=== PATIENT | female | born 1990 | race Caucasian/White ===

== ENCOUNTER 2022-05-11 16:59 | Emergency (ER) | payer BC, SELFPAY ==
[2022-05-11 17:16] VITALS: BP 140/78; PULSE 106; RESP 20; TEMP 37.4; O2SAT 100
--- NOTE | 2022-05-11 18:31 | ED.GENADULT ---
HPI - General Adult General Chief complaint: Upper Respiratory Infection Stated complaint: Cold Symptoms, Vomiting, 10 Weeks Preg Time Seen by Provider: 05/11/22 18:21 Source: patient Mode of arrival: ambulatory Limitations: no limitations History of Present Illness HPI narrative: Presents c/o nasal congestion, sore throat, cough that started Sunday. Now has N/V that started this AM and has not been able to keep anything down. 10 weeks preg but denies ABD pain or vaginal sx. LMP 02/20/22. Denies change in urination. Mild pain to low back. Has not taken any medications for sx. Reports baby ill last week with similar upper resp sx. Related Data Allergies Allergy/AdvReac Type Severity Reaction Status Date / Time No Known Allergies Allergy Mild Verified 12/16/21 09:47 Review of Systems Review of Systems: CONSTITUTIONAL: Denies fever, chills, or sweats. EYES: Denies visual changes, redness, or discharge. ENT: Nasal congestion, sore throat, congestion. CARDIOVASCULAR: Denies chest pain, palpitations, or edema. RESPIRATORY: Nonprod cough. Denies diff breathing. GASTROINTESTINAL: N/V since this AM. Denies ABD pain. GENITOURINARY: Denies dysuria or hematuria. SKIN: Denies rash or itching. MUSCULOSKELETAL: Low back pain. Denies joint pain, or myalgia. NEUROLOGIC: Denies headache, numbness, or weakness. PSYCHIATRIC: Denies anxiety or depression. [facility] Family History Family History Grandparent Diabetes mellitus Heart disease Social History Social History (Updated 12/16/21 @ 09:53 by Conrad Calzada MA) Smoking status: Former smoker Second hand tobacco smoke exposure: No Smoking end date: 07/09/19 Alcohol intake: never Substance use: never Substance use type: does not use Gender identity (if verbalized by the patient): Female Sexual Orientation (if Verbalized by the Patient): Straight or Heterosexual Spiritual care concerns: No Agree to blood products: Yes Exam Narrative: GENERAL: Well-appearing, well-nourished, and in no acute distress. HEAD: Normocephalic, atraumatic. EYES: PERRLA and EOMI. ENT: Nasal congestion with clear drainage. Posterior oropharynx drainage with slight erythema. No exudate. Mucous membranes moist. NECK: Supple. CHEST: Clear to auscultation. No respiratory distress. HEART: Regular rate and rhythm. No murmur heard. Normal peripheral pulses. ABDOMEN: Soft, nontender, nondistended, normal active bowel sounds. EXTREMITIES: Normal range of motion. No edema. SKIN: Warm, dry, no rash. NEURO: No focal deficits. Alert and oriented x3. PSYCH: Normal mood and affect. Course Vital Signs Vital signs: Vital Signs Temperature 37.4 C 05/11/22 17:16 Pulse Rate 106 H 05/11/22 17:16 Respiratory Rate 20 05/11/22 17:16 Blood Pressure 140/78 05/11/22 17:16 Pulse Oximetry 100 05/11/22 17:16 Oxygen Delivery Room Air 05/11/22 17:16 Temperature 37.4 C 05/11/22 17:16 Pulse Rate 106 H 05/11/22 17:16 Respiratory Rate 20 05/11/22 17:16 Blood Pressure 140/78 05/11/22 17:16 Pulse Oximetry 100 05/11/22 17:16 Oxygen Delivery Room Air 05/11/22 18:14 Medical Decision Making Vital Signs Vital Signs: Vital Signs Temperature 37.4 C 05/11/22 17:16 Pulse Rate 106 H 05/11/22 17:16 Respiratory Rate 05/11/22 17:16 Blood Pressure 140/78 05/11/22 17:16 Pulse Oximetry 100 05/11/22 17:16 Oxygen Delivery Room Air 05/11/22 17:16 Temperature 37.4 C 05/11/22 17:16 Pulse Rate 106 H 05/11/22 17:16 Respiratory Rate 05/11/22 17:16 Blood Pressure 140/78 05/11/22 17:16 Pulse Oximetry 100 05/11/22 17:16 Oxygen Delivery Room Air 05/11/22 18:14 Discharge Plan Discharge Prescriptions: No Action amoxicillin-pot clavulanate 875-125 mg tablet 1 tablet PO BID Qty: 14 0RF sulfamethoxazole-trimethoprim [Bactrim DS] 800-160 mg tablet 1 tab
[2022-05-11] MEDS: SODIUM CHLORIDE 0.9% IV 1,000 ML 999 ML IV CONT (19:01)
[2022-05-11] MEDS: ONDANSETRON INJ 4 MG/2 ML VIAL IV PUSH (19:01)
[2022-05-11 19:25] LABS: Basophils Percent Auto 0.2 % (0.2-1.2); Eosinophils Absolute Auto 0.1 K/mm3 (0-0.3); Hematocrit 36.2 % (37.0-47.0); Immature Granulocyte Absolute 0.04 K/mm3 (0.00-0.031); Immature Granulocyte Percent A 0.4 % (0-0.5); Lymphocytes Absolute Auto 1.01 K/mm3 (0.9-3.2); Lymphocytes Percent Auto 11.2 % (18.3-44.2); Mean Corpuscular HGB Conc 33.1 g/dl (32-36); Mean Corpuscular Hemoglobin 28.8 pg (26-34); Mean Corpuscular Volume 86.8 fl (80-100); Mean Platelet Volume 11.6 fl (7.4-10.4); Monocytes Absolute Auto 0.8 K/mm3 (0.1-0.6); Neutrophils Absolute Auto 7.1 K/mm3 (1.3-6.7); Neutrophils Percent Auto 78.2 % (45.5-73.1); Platelet Count Result 213 k/mm3 (150-375); Red Blood Count 4.17 M/mm3 (4.2-5.4); Red Cell Distribution Width 12.5 % (11.5-14.5)
[2022-05-11 19:31] LABS: Appearance Urine Clear (Clear); Bilirubin Urine Negative (Negative); Blood Urine Trace-intact (Negative); Color Urine Yellow (Yellow); Glucose Urine UA Negative (Negative); Ketones Urine 1+ mg/dL (Negative); Leukocyte Esterase Ur Trace LEU/UL (Negative); Nitrate Urine Negative (Negative); Protein Urine Negative (Negative); Urobilinogen Urine 0.2 mg/dL (<2.0); pH Urine 6.5 (5.0-9.0)
[2022-05-11 19:33] LABS: Alanine Aminotransferase 14 U/L (6-35); Albumin Level 4.1 g/dL (3.5-5.1); Alkaline Phosphatase 68 U/L (38-126); Anion Gap 14 mmol/L (8-16); Aspartate Amino Transferase 15 U/L (14-36); Bilirubin,Total 0.4 mg/dL (0.2-1.3); Blood Urea Nitrogen 6 mg/dL (7-17); Calcium 8.7 mg/dL (8.4-10.2); Carbon Dioxide 22 mmol/L (22-30); Chloride 100 mmol/L (98-107); Estimated CRCL calculation 198 ml/min; Estimated Glomerular Filt Rate > 60; Glucose 92 mg/dL (65-110); Lipase 28 U/L (23-300); Potassium 3.6 mmol/L (3.4-5.0); Sodium 136 mmol/L (137-145)
[2022-05-11 19:39] LABS: Bacteria Urine Trace /hpf; Mucus Urine Rare /lpf; Squamous Epithelial Cell Urine Few /hpf (Few); WBC Urine 0-3 /hpf
[2022-05-11 19:48] LABS: Add Urine Microscopic? YES
[2022-05-11 20:07] LABS: Influenza A QL RT-PCR Negative (Negative); Influenza B QL RT-PCR Negative (Negative); SARS-CoV-2 RNA PCR Negative
[2022-05-11 20:12] VITALS: BP 106/57; PULSE 88; RESP 16; TEMP 36.9; O2SAT 100
== END 2022-05-11 20:35 | disposition home or self-care (01) ==
PROVIDERS: Emergency Provider Nurse Practitioner; PCP Family Medicine Adolescent Medicine
DX: O99.511 Diseases of the respiratory system complicating pregnancy, first trimester (principal); J06.9 Acute upper respiratory infection, unspecified; O21.9 Vomiting of pregnancy, unspecified; Z3A.10 10 weeks gestation of pregnancy; Z20.822 Contact with and (suspected) exposure to COVID-19; Z87.891 Personal history of nicotine dependence
CPT/HCPCS: 36415; 80053; 81001; 83690; 85025; 87636; 96361; 96374; 99284; J2405; J7030

== ENCOUNTER 2022-10-19 13:04 | Observation (INO) | payer BC, SELFPAY ==
[2022-10-19 13:33] VITALS: BP 131/82; PULSE 100
[2022-10-19 13:41] VITALS: BMI 41.9
--- NOTE | 2022-10-19 13:42 | OBADM ---
This patient, Julianne Quiles, admitted to the OB room OB Post 117 for observation. Patient/family oriented to hospital policies and general routines including ID bracelet, bed and alarms, visiting hours, pain management, procedures, bathroom and other care routines, personal items, smoking policy, room service/diet, and visiting hours. Patient/Family are encouraged to report perceived risks to care and to ask questions if they do not understand what they are told or what they should do.
[2022-10-19 13:46] VITALS: BP 118/70; PULSE 101
[2022-10-19 13:54] LABS: Appearance Urine Clear (Clear); Bilirubin Urine Negative (Negative); Blood Urine Negative (Negative); Color Urine Yellow (Yellow); Glucose Urine UA Negative (Negative); Ketones Urine Negative (Negative); Leukocyte Esterase Ur Negative LEU/UL (Negative); Nitrate Urine Negative (Negative); Protein Urine Negative (Negative); Specific Grav Ur 1.002 (1.001-1.035); Urobilinogen Urine 0.2 mg/dL (<2.0)
[2022-10-19 14:01] VITALS: BP 120/68; PULSE 98
[2022-10-19 14:04] LABS: Add Urine Microscopic? NO
[2022-10-19 14:16] VITALS: BP 125/68; PULSE 95
--- NOTE | 2022-11-12 17:52 | PM.OBTRLD ---
OB - Triage/Final Diagnosis Visit Information Comments/Additional reasons for admission: I have assessed the risk for this patient, Julianne Quiles, and determined that she would benefit from observation care. Evaluation Laboratory results: Laboratory Tests 10/19/22 13:25 Urine Color Yellow Urine Appearance Clear Urine pH 7.0 Ur Specific [place] 1.002 Urine Protein Negative Urine Glucose (UA) Negative Urine Ketones Negative Ur Blood (Man) Negative Urine Nitrate Negative Urine Bilirubin Negative Urine Urobilinogen 0.2 Leukocyte Esterase Rfl Negative Final Diagnosis (1) Abdominal pain: Code(s): R10.9 - Unspecified abdominal pain Status: Acute
== END 2022-10-19 14:32 | disposition home or self-care (01) ==
PROVIDERS: Obstetrics & Gynecology; Admitting Provider Obstetrics & Gynecology; PCP Family Medicine Adolescent Medicine; Visit Provider Obstetrics & Gynecology
DX: O26.899 Other specified pregnancy related conditions, unspecified trimester (principal); R10.9 Unspecified abdominal pain; Z3A.33 33 weeks gestation of pregnancy
CPT/HCPCS: 81003; G0378; G0379

== ENCOUNTER 2022-11-28 10:52 | Outpatient (CLI) | payer BC, SELFPAY ==
[2022-11-28 11:08] LABS: Hematocrit 33.4 % (37.0-47.0); Hemoglobin 11.2 g/dL (12.0-15.0); Mean Corpuscular HGB Conc 33.5 g/dl (32-36); Mean Corpuscular Volume 83.5 fl (80-100); Mean Platelet Volume 11.8 fl (7.4-10.4); Platelet Count Result 211 k/mm3 (150-375); Red Cell Distribution Width 13.4 % (11.5-14.5); White Blood Count 10.6 K/mm3 (4.5-10.0)
[2022-11-29 08:05] LABS: Rapid Plasma Reagin Non-Reactive (NonReactive)
== END 2022-11-28 10:53 | disposition home or self-care (01) ==
LOC: ANHLAB 10:53
PROVIDERS: PCP Family Medicine Adolescent Medicine; Visit Provider Obstetrics & Gynecology
DX: Z34.93 Encounter for supervision of normal pregnancy, unspecified, third trimester (principal); Z3A.00 Weeks of gestation of pregnancy not specified
CPT/HCPCS: 36415; 85027; 86592; 86850; 86900; 86901

== ENCOUNTER 2022-11-29 09:59 | Inpatient (IN) | payer BC, SELFPAY ==
[2022-11-29] VITALS (57 sets, daily range): BP systolic 92–123; BP diastolic 43–81; PULSE 53–107; RESP 11–18; TEMP 36.2–36.8; O2SAT 96–100; BMI 41.3
--- NOTE | 2022-11-29 10:16 | WPDANESEPPF ---
Anes - Initial Pre Proc Eval Procedure: Operation Date: 11/29/22 12:00 Proposed Procedures p Section - Rosalinda Arauz MD Date/Time: 11/29/22 10:16 Surgeon: Elli Elder MD Pre Op Diagnosis: r c/s Patient Data Age: 32 Gender: F Height: 1.75 m Weight: 127.1 kg Allergies Allergy/AdvReac Type Severity Reaction Status Date / Time adhesive Allergy Rash Verified 11/29/22 10:13 Home Medications Medication Instructions Recorded Confirmed Type montelukast 10 mg tablet 10 mg PO DAILY #90 tabs 04/05/22 11/29/22 Rx loratadine 10 mg tablet (Allergy 10 mg PO DAILY #90 tabs 07/31/22 11/29/22 Rx Relief (loratadine)) aspirin 81 mg tablet 81 mg PO DAILY 11/09/22 11/29/22 History ferrous sulfate 325 mg (65 mg 325 mg PO DAILY 11/09/22 11/29/22 History iron) tablet prenat.vits,tawana,vem-irmo-gngmc 1 tablet PO HS 11/09/22 11/29/22 History Patient hx anesthesia problems: none Family hx anesthesia problems: none Results Review: All pre-operative results and documents have been reviewed as part of the pre-operative evaluation. [facility] Past Medical History Medical History (Updated 11/29/22 @ 11:53 by Nico Casanova DO) Pre-eclampsia first Family History Family History (Updated 11/29/22 @ 10:57 by Dee Hicks RN) Grandparent Diabetes mellitus Heart disease Mother Rheumatoid arthritis Social History Social History (Updated 12/16/21 @ 09:53 by Conrad Calzada MA) Smoking packs per day: 0.5 Smoking cigarettes per day: 10.0 Years smoked: 5 Smoking pack-years: 2.50 Smoking status: Former smoker Tobacco type: cigarettes Second hand tobacco smoke exposure: No Smoking end date: 07/09/19 Alcohol intake: never Substance use: never Substance use type: does not use Lack of Transportation: No Lack of Food: Never True Current Housing: I Have Housing Concerned About Future Housing: No Difficulty Paying Gas/Electric Bills: No Difficulty Paying for Meds: No Currently Unemployed: No Education: Master's Degree or Higher Difficulty w/ Childcare or Family Care: No Living arrangements: with family Occupation/Education: occupation Gender identity (if verbalized by the patient): Female Sexual Orientation (if Verbalized by the Patient): Straight or Heterosexual Spiritual care concerns: No Agree to blood products: Yes Anes - Eval Final PreProcedure Day of Procedure 11/29/22 10:16 Patient weight: morbidly obese Heart: regular rate and rhythm Lungs: clear to auscultation and normal air movement Airway: Mallampati scale class II Neurological: alert and oriented Last oral intake: >/= 8 hours ASA classification: III Emergent: no Anesthetic plan: proceed Anesthesia type and monitoring: regional spinal and standard monitoring Results Review: All pre-operative results and documents have been reviewed as part of the pre-operative evaluation. Informed Consent: The patient's anesthetic plan and its attendant risks and benefits were discussed with the patient/family/POA. Questions were solicited and answers provided to the satisfaction of the patient/family/POA.
[2022-11-29] MEDS: LACTATED RINGERS 1,000 ML 125 ML IV CONT ×2 (10:43→11:57)
--- NOTE | 2022-11-29 10:51 | LDADM ---
This patient, Julianne Quiles, was admitted to Labor/Delivery/Recovery 120 on 11/29/22 at 09:59. Plans for surgery/ and pain management were discussed with patient. Patient/family oriented to hospital policies and general routines including ID bracelet, bed and alarms, visiting hours, pain management, procedures, bathroom and other care routines, personal items, smoking policy, room service/diet and guest tray routines, infant security routines, and visiting hours. Patient/Family are encouraged to report perceived risks to care and to ask questions if they do not understand what they are told or what they should do.
--- NOTE | 2022-11-29 11:47 | PM.IMHP ---
H&P: HPI History of Present Illness Date/Time: 11/29/22 11:47 Chief Complaint: repeat CS Narrative: Julianne is a 32y [id number] at 39.0 for repeat CS. complicated by BMI of 42. Baby was measuring LGA earlier in , but 36w US was 80%. She has an adhesive sensitivity, but only if left on for long periods of time. Review of Systems Review of Systems: All systems reviewed & are unremarkable except as noted in HPI and below PMFSH Past Medical History Medical History (Updated 11/29/22 @ 10:17 by Nico Casanova DO) Pre-eclampsia Family History Family History (Updated 11/29/22 @ 10:57 by Dee Hicks RN) Grandparent Diabetes mellitus Heart disease Mother Rheumatoid arthritis Social History Social History (Updated 12/16/21 @ 09:53 by Conrad Calzada MA) Smoking packs per day: 0.5 Smoking cigarettes per day: 10.0 Years smoked: 5 Smoking pack-years: 2.50 Smoking status: Former smoker Tobacco type: cigarettes Second hand tobacco smoke exposure: No Smoking end date: 07/09/19 Alcohol intake: never Substance use: never Substance use type: does not use Lack of Transportation: No Lack of Food: Never True Current Housing: I Have Housing Concerned About Future Housing: No Difficulty Paying Gas/Electric Bills: No Difficulty Paying for Meds: No Currently Unemployed: No Education: Master's Degree or Higher Difficulty w/ Childcare or Family Care: No Living arrangements: with family Occupation/Education: occupation Gender identity (if verbalized by the patient): Female Sexual Orientation (if Verbalized by the Patient): Straight or Heterosexual Spiritual care concerns: No Agree to blood products: Yes Meds Home Medications and Allergies Home Medications Medication Instructions Recorded Confirmed Type montelukast 10 mg tablet 10 mg PO DAILY #90 tabs 04/05/22 11/29/22 Rx loratadine 10 mg tablet (Allergy 10 mg PO DAILY #90 tabs 07/31/22 11/29/22 Rx Relief (loratadine)) aspirin 81 mg tablet 81 mg PO DAILY 11/09/22 11/29/22 History ferrous sulfate 325 mg (65 mg 325 mg PO DAILY 11/09/22 11/29/22 History iron) tablet prenat.vits,tawana,ans-cnts-rievq 1 tablet PO HS 11/09/22 11/29/22 History Allergies Allergy/AdvReac Type Severity Reaction Status Date / Time adhesive Allergy Rash Verified 11/29/22 10:13 Vital Signs Vital Signs - 24 hr 11/29/22 10:25 11/29/22 10:30 11/29/22 10:32 Temperature Pulse Rate Respiratory Rate Blood Pressure Pulse Oximetry 99 100 99 Oxygen Delivery 11/29/22 10:37 11/29/22 10:42 11/29/22 10:46 Temperature Pulse Rate Respiratory Rate Blood Pressure Pulse Oximetry 98 98 98 Oxygen Delivery 11/29/22 10:47 11/29/22 10:51 11/29/22 10:47 Temperature Pulse Rate 106 H Respiratory Rate Blood Pressure 123/81 Pulse Oximetry 99 Oxygen Delivery Room Air 11/29/22 10:47 Temperature 97.3 F L Pulse Rate Respiratory Rate 16 Blood Pressure Pulse Oximetry Oxygen Delivery Exam Const: General: no acute distress Resp: Effort & Inspection: normal respiratory effort Auscultation: clear to auscultation bilaterally Cardio: Rate: regular rate Rhythm: regular rhythm GI: GI Palp: Yes Soft to palpation Extrem: General: normal to inspection Assessment and Plan Assessment and plan (1) History of delivery: Code(s): Z98.891 - History of uterine scar from previous surgery Status: Acute (2) Morbid obesity with BMI of 40.0-44.9, adult: Code(s): E66.01 - Morbid (severe) obesity due to excess calories; Z68.41 - Body mass index [BMI] 40.0-44.9, adult Status: Acute Plan FHT category 1 GBS neg BMI 42, pt aware of increased risks of surgery consented for repeat CS, will proceed. limit adhesive/bandages, remove when able.
--- NOTE | 2022-11-29 11:50 | WPDHPUPDATE1 ---
History and Physical Update Update Date/Time: 11/29/22 11:50 History and Physical has been reviewed, including an updated exam of the patient. There are NO changes in the patient's condition. Risks, benefits, and alternatives have been discussed and questions answered. Patient agrees to proceed with procedure.
[2022-11-29] MEDS: ceFAZolin 3 GM/D5W 100 ML 100 ML IVPB (11:57)
[2022-11-29] MEDS: KETOROLAC 30 MG/ML VIAL (*BKC) IV PUSH (12:44)
--- NOTE | 2022-11-29 13:09 | PM.OBPRVD ---
OB - Delivery Note Procedure Delivery date: 11/29/22 Procedure: Procedures Operation Date: 11/29/22 12:00 <No data on this case meets the specified criteria> repeat low transverse section Events: Previous Delivery Route of delivery: Specimen: Yes (placenta) Quantitative Blood Loss (ml): 950 Anesthesia type: Spinal Disposition: Floor Complications: none Narrative: Preop Dx: previous section, IUP 39w Post op Dx: same The patient was taken to the OR and received spinal anesthesia. She was placed in dorsal supine position with left lateral tilt. SCDs and lawrence were placed. She was prepped and draped in the normal sterile fashion. A Pfannensteil skin incision was made and carried through to the underlying layer of fascia. The fascia was incised in the midline and then extended laterally using Stern scissors. The muscles were in the midline and the peritoneum was entered bluntly. The peritoneal incision was extended inferiorly and superiorly with care to avoid the bladder. The bladder blade was then inserted, the vesicouterine peritoneum was grasped, incised with Metzenbaum scissors, and a bladder flap created. The bladder blade was reinserted. A low transverse uterine incision was made with a scalpel and extended bluntly. AROM was performed and fluid was noted to be clear. The head was delivered, followed by the remainder of the baby. The baby's oropharynx was suctioned. After 30 seconds, the cord was clamped and cut and the infant was handed off. Cord blood was obtained and the placenta was then removed manually. The uterus was exteriorized. A moist lap sponge was used to curette the endometrium. The uterine incision was then closed with one layer of 0-Vicryl in a running, locking fashion. Good hemostasis was noted. The posterior cul de sac was irrigated with normal saline and cleared of all clot and debris. The uterus was returned to the abdomen. Both lateral gutters were then irrigated. The rectus muscles were inspected and found to be hemostatic. The fascia was reapproximated using 0-Vicryl in running fashion. The subcutaneous tissue was irrigated with normal saline and made hemostatic with Bovie electrocautery. The subcutaneous tissue was reapproximated with a layer of running 2-0 plain gut. The skin was then closed with absorbable luz. Steri strips and a bandage were applied. The uterus was evacuated. The patient tolerated the procedure very well. All counts were correct. She was taken to the recovery room in good condition. Baby Date of : 11/29/22 Time of : 12:28 Weeks of gestation at delivery: 39 gender: Female Weight (pounds): 7 Weight (ounces): 15 presentation: vertex Placenta delivery description: Spontaneous Cord Vessel Description: 3 Vessels and Delayed Cord Clamping score one minute: 9 score five minutes: 9
[2022-11-29] MEDS: OXYTOCIN 30 UNITS/NS 500 ML 30 UNITS/500 ML BAG 125 UNITS IV CONT (13:44)
--- NOTE | 2022-11-29 13:56 | PC.NURSE ---
heart tones checked in OR before prep. At 1206 FHT 135.
--- NOTE | 2022-11-29 15:24 | OBPPTRN ---
Patient transferred to post room #285 via stretcher. Pt transfered to bed using the maxi air, pt tolerated well. Support person present. Oriented to unit, room, information board, rooming in, admission packet and security measures. Patient verbalizes understanding.
[2022-11-29] MEDS: DEXTROSE 5%/0.45% SOD CHL 1,000 ML 125 ML IV CONT (17:43)
[2022-11-29] MEDS: DOCUSATE SODIUM 100 MG CAPSULE PO (20:57)
[2022-11-29] MEDS: IBUPROFEN 600 MG TABLET PO (20:57)
[2022-11-29] MEDS: HYDROcodone/acetaminophen (*CRX) 5-325 MG TABLET 1 TAB PO (21:02)
[2022-11-30 00:38] VITALS: BP 115/68; PULSE 74; RESP 14; TEMP 36.6; O2SAT 99
[2022-11-30] MEDS: HYDROcodone/acetaminophen (*CRX) 5-325 MG TABLET 1 TAB PO ×5 (01:46→17:40)
[2022-11-30 05:00] VITALS: BP 121/71; PULSE 77; RESP 16; TEMP 36.5; O2SAT 99
[2022-11-30 05:37] LABS: Basophils Percent Auto 0.2 % (0.2-1.2); Eosinophils Absolute Auto 0.1 K/mm3 (0-0.3); Eosinophils Percent Auto 0.6 % (0-4.4); Hematocrit 28.4 % (37.0-47.0); Hemoglobin 9.4 g/dL (12.0-15.0); Immature Granulocyte Absolute 0.05 K/mm3 (0.00-0.031); Immature Granulocyte Percent A 0.5 % (0-0.5); Lymphocytes Absolute Auto 2.07 K/mm3 (0.9-3.2); Lymphocytes Percent Auto 19.2 % (18.3-44.2); Mean Corpuscular HGB Conc 33.1 g/dl (32-36); Mean Corpuscular Hemoglobin 28.1 pg (26-34); Mean Corpuscular Volume 84.8 fl (80-100); Monocytes Absolute Auto 0.9 K/mm3 (0.1-0.6); Monocytes Percent Auto 7.9 % (2.6-8.5); Neutrophils Absolute Auto 7.7 K/mm3 (1.3-6.7); Neutrophils Percent Auto 71.6 % (45.5-73.1); Platelet Count Result 155 k/mm3 (150-375); Red Blood Count 3.35 M/mm3 (4.2-5.4); Red Cell Distribution Width 13.6 % (11.5-14.5); White Blood Count 10.8 K/mm3 (4.5-10.0)
[2022-11-30] MEDS: DOCUSATE SODIUM 100 MG CAPSULE PO ×2 (07:54→17:40)
[2022-11-30] MEDS: POLYSACCHARIDE IRON COMPLEX 150 MG CAPSULE PO ×2 (07:54→17:40)
[2022-11-30] MEDS: MULTIVIT/MIN/PREN/FOL AC/IRON TABLET 1 TAB PO (07:55)
[2022-11-30] MEDS: IBUPROFEN 600 MG TABLET PO ×2 (07:55→14:33)
--- NOTE | 2022-11-30 08:19 | PM.OBPNVD ---
OB - PN: Subj Subjective Date/time seen: 11/30/22 08:19 Patient comments: no complaints, pain well controlled, tolerating diet and flatus present OB - PN: Obj Data Labs 11/30/22 05:31 Labs: Laboratory Results - last 24 hr 11/30/22 05:31 WBC 10.8 H RBC 3.35 L Hgb 9.4 L Hct 28.4 L MCV 84.8 MCH 28.1 MCHC 33.1 RDW 13.6 Plt Count 155 MPV 12.0 H Immature Gran % (Auto) 0.5 Neut % (Auto) 71.6 Lymph % (Auto) 19.2 [place] % (Auto) 7.9 Eos % (Auto) 0.6 Baso % (Auto) 0.2 Lymph # (Auto) 2.07 [place] # (Auto) 0.9 H Eos # (Auto) 0.1 Baso # (Auto) 0.0 Abs Immat Gran (auto) 0.05 H Absolute Neuts (auto) 7.7 H Absolute Nucleated RBC 0.0 Nucleated RBC % 0.0 OB - PN A/P Plan day: 1 Comments: Post Op LTCS - no problems, routine recovery Time Spent With Patient Time: Total time spent is greater than 50% in coordination of care (as documented) at patient's floor/unit and/or counseling patient: Exam Const: General: cooperative, healthy appearing, comfortable and no acute distress Resp: Auscultation: no crackles, no rales, no rhonchi and no wheezes Cardio: Rhythm: regular rhythm Heart sounds: no click and no murmurs GI: Inspection: non-distended Auscultation: normal bowel sounds Extrem: General: normal to inspection, no pedal edema and no calf tenderness
[2022-11-30 08:35] VITALS: BP 133/63; PULSE 78; RESP 16; TEMP 37.2; O2SAT 99
--- NOTE | 2022-11-30 11:09 | WPDANLDPN2 ---
Anes-Prog Note L&D Date/Time: 11/30/22 11:09 Neuro status: Neuro function grossly intact. Vital Signs: Last Vital Signs Temp 37.2 C 11/30/22 08:35 Pulse 78 11/30/22 08:35 Resp 16 11/30/22 08:35 BP 133/63 11/30/22 08:35 Pulse Ox 99 11/30/22 08:35 O2 Del Method Room Air 11/30/22 07:55 Pain score (VAS): 0 I/O: Intake & Output 11/29/22 11/30/22 11/30/22 23:59 07:59 15:59 Intake Total 200 2200 Output Total 100 5505 576 Balance 202 -440 -951 Patient feedback: Patient satisfied with anesthetic care.
--- NOTE | 2022-11-30 11:09 | WPDANLDNPN2 ---
Anes-Prog Note L&D-Neuraxial Date/Time: 11/30/22 11:09 Patient feedback: Patient satisfied with post-operative pain management.
[2022-11-30 20:28] VITALS: BP 118/71; PULSE 80; RESP 18; TEMP 36.8; O2SAT 98
[2022-12-01] MEDS: IBUPROFEN 600 MG TABLET PO ×4 (00:31→21:50)
[2022-12-01] MEDS: HYDROcodone/acetaminophen (*CRX) 5-325 MG TABLET 1 TAB PO ×6 (00:32→21:49)
--- NOTE | 2022-12-01 07:18 | PM.OBPNVD ---
OB - PN: Subj Subjective Date/time seen: 12/01/22 07:18 Patient comments: no complaints and incisional pain feeding status: breast and bottle feeding Narrative: May want to DC later today depending on pain and how baby feeding. OB - PN: Obj Data Labs 11/30/22 05:31 OB - PN A/P Assessment and Plan (1) delivery delivered: Code(s): O82 - Encounter for delivery without indication Status: Acute Plan day: 2 Plan: routine care Comments: Possible DC home later today. FU 1 week Time Spent With Patient Time: Total time spent is greater than 50% in coordination of care (as documented) at patient's floor/unit and/or counseling patient: Exam Narrative: NAD abdomen soft, appropriately tender, incision CDI Extremities nontender with 1+ edema
--- NOTE | 2022-12-01 07:25 | PM.OBDSVD ---
DS: Admitting Diagnosis Discharge Date 12/01/22 Admitting Diagnosis term IUP, prior CS DS: Discharge Diagnosis Discharge Diagnosis (1) delivery delivered: Code(s): O82 - Encounter for delivery without indication Status: Acute OB - DS: Summary Hospital Course Hospital Course: Julianne was admitted for repeat CS at 39w. She proceeded to have an uncomplicated delivery and course. She was discharged home in stable condition on POD 2. OB Procedures : NST and Ultrasound OB Procedures Intrapartum: OB Procedures: : None Peripartum Data Delivery Method: Section Procedures: Procedures Operation Date: 11/29/22 12:00 Actual Procedure Side Surgeon p Section Rosalinda Arauz MD repeat low transverse section complications: none Status at Discharge Functional status at discharge: independent ambulation Time Spent with Patient Time attestation: Total time spent providing and/or coordinating discharge services: Exam Narrative: NAD abdomen soft, appropriately tender, incision CDI Discharge Plan Discharge Attending physician on discharge: Rosalinda Arauz Discharging Clinician: Rosalinda Arauz Anticipated Discharge Date/Time: 12/01/22 15:00 Patient Disposition: Home, Self-Care Activity: may shower, may drive after 2 weeks and pelvic rest Diet: regular Patient Instructions: Antibiotic Form Stand Alone Forms: General Discharge Information Follow-up/Referrals: Rosalinda Arauz MD [Physician] - 1 Week Discharge Medications: New hydrocodone-acetaminophen 5-325 mg Tablet 1 tablet PO Q4-5H PRN (Reason: Moderate Pain (4-6)) Qty: 30 0RF ibuprofen 600 mg Tablet 600 mg PO Q6H PRN (Reason: Cramping) Qty: 60 0RF docusate sodium 100 mg Capsule 100 mg PO BID Qty: 60 0RF Continued ferrous sulfate 325 mg (65 mg iron) Tablet 325 mg PO DAILY #2 Tablet 1 tablet PO HS montelukast 10 mg tablet 10 mg PO DAILY Qty: 90 1RF Discontinued Adult Low Dose Aspirin 81 mg Tablet 81 mg PO DAILY loratadine [Allergy Relief (loratadine)] 10 mg tablet 10 mg PO DAILY Qty: 90 2RF Date of admission: 11/29/22 09:59 Primary Care Provider: Alexis Christensen Admitting Provider: Elli Elder Attending physician on admission: Elli Elder Condition: Stable
--- NOTE | 2022-12-01 08:30 | PC.NURSE ---
PT introductions made and plan of care discussed per post , c section, pain management, breast feeding, bottle feeding, daily care activities and pending discharge to home. PT and spouse both recipients of such instructions and no barriers to learning identified at this time. PT received such instructions this shift via one to one discussion, mom baby care guide and demonstrations. PT verbalized understanding of such care.
[2022-12-01 08:35] VITALS: BP 129/65; PULSE 79; RESP 18; TEMP 36.8; O2SAT 99
[2022-12-01 09:52] VITALS: PULSE 79; RESP 18; O2SAT 99
[2022-12-01] MEDS: MULTIVIT/MIN/PREN/FOL AC/IRON TABLET 1 TAB PO (09:52)
[2022-12-01] MEDS: DOCUSATE SODIUM 100 MG CAPSULE PO ×2 (09:52→16:53)
[2022-12-01] MEDS: SIMETHICONE 80 MG TAB.CHEW PO ×2 (09:52→16:53)
[2022-12-01] MEDS: POLYSACCHARIDE IRON COMPLEX 150 MG CAPSULE PO ×2 (09:53→16:53)
[2022-12-01 21:50] VITALS: BP 138/70; PULSE 85; RESP 18; TEMP 36.6
[2022-12-02] MEDS: HYDROcodone/acetaminophen (*CRX) 5-325 MG TABLET 1 TAB PO ×3 (03:18→11:49)
[2022-12-02] MEDS: IBUPROFEN 600 MG TABLET PO ×2 (03:19→11:49)
--- NOTE | 2022-12-02 06:34 | PM.OBPNVD ---
OB - PN: Subj Subjective Date/time seen: 12/02/22 06:34 Patient comments: no complaints, pain well controlled and tolerating diet OB - PN: Obj Data Labs 11/30/22 05:31 OB - PN A/P Plan day: 2 Plan: routine care and discharge home Time Spent With Patient Time: Total time spent is greater than 50% in coordination of care (as documented) at patient's floor/unit and/or counseling patient: Exam Const: General: comfortable and no acute distress Resp: Effort & Inspection: normal respiratory effort Auscultation: no rales, no rhonchi and no wheezes Cardio: Rate: regular rate Heart sounds: no click, no murmurs and no rubs GI: GI Palp: Yes Soft to palpation and No Tenderness to palpation present (GI) Auscultation: normal bowel sounds Extrem: General: normal to inspection, no pedal edema and no calf tenderness
[2022-12-02 08:40] VITALS: BP 119/61; PULSE 79; RESP 16; TEMP 36.8; O2SAT 99
[2022-12-02] MEDS: DOCUSATE SODIUM 100 MG CAPSULE PO (08:40)
[2022-12-02] MEDS: POLYSACCHARIDE IRON COMPLEX 150 MG CAPSULE PO (08:40)
[2022-12-02] MEDS: MULTIVIT/MIN/PREN/FOL AC/IRON TABLET 1 TAB PO (08:40)
[2022-12-04 09:30] VITALS: BP 136/65; PULSE 81; RESP 18; TEMP 36.8; O2SAT 100
== END 2022-12-02 13:50 | disposition home or self-care (01) | DRG 788 ==
LOC: ANHOB2 12-02 12:27 → ANHLDR 12-05 13:53 → ANHOB2 12-05 13:53
PROVIDERS: Admitting Provider Obstetrics & Gynecology; PCP Family Medicine Adolescent Medicine; Visit Provider Obstetrics & Gynecology
PROC: 10D00Z1 Extraction of Products of Conception, Low, Open Approach (ICD-10-PCS; CPT 59514; principal; 2022-11-29 12:00)
DX: O34.219 Maternal care for unspecified type scar from previous cesarean delivery (principal); O14.94 Unspecified pre-eclampsia, complicating childbirth; O99.214 Obesity complicating childbirth; E66.01 Morbid (severe) obesity due to excess calories; Z3A.39 39 weeks gestation of pregnancy; Z37.0 Single live birth; Z87.891 Personal history of nicotine dependence
CPT/HCPCS: 36415; 85025; A9270; J0690; J1885; J2274; J2370; J2405; J2590; J7120

== ENCOUNTER 2023-11-19 10:49 | Day surgery (SDC) | payer BC, SELFPAY ==
[2023-11-19] VITALS (13 sets, daily range): BP systolic 112–152; BP diastolic 67–90; PULSE 61–89; RESP 12–18; TEMP 36.1–36.8; O2SAT 98–100
--- NOTE | ~2023-11-19 | CT_ITS ---
EXAMINATION: CT abdomen pelvis w con DATE: 11/19/2023 12:01 INDICATION: Right lower quadrant abdominal pain TECHNIQUE: Computed tomography (CT) of the abdomen and pelvis was performed with 100 mL Omnipaque-350 intravenous contrast. Automated exposure control and iterative reconstruction technique were employe d. The dose-length product was 1528.72 mGy-cm. COMPARISON: None FINDINGS: Lung bases are clear. Heart size is normal. No pericardial or pleural effusion. Liver, gallbladder, s pleen, pancreas, bilateral adrenal glands and kidneys are normal. There is mild stranding surrounding the appendix which measures up to 10 mm diameter suspicious for acute appendicitis. Bowels are other cunha normal. Bladder is normal. T-shaped IUD positioned more caudal than typical, centered at the lo wer uterine segment. No free intraperitoneal gas or fluid. No pathologically enlarged abdominal or pe lvic lymphadenopathy. Moderate thoracic spondylosis. IMPRESSION: 1. Acute appendicitis. 2. IUD positioned more caudal than expected, centered at the lower uterine segment. Reviewed, dictated and finalized at location B. IMPRESSION: 1. Acute appendicitis. 2. IUD positioned more caudal than expected, centered at the lower uterine segm ent.
[2023-11-19 11:27] LABS: Basophils Percent Auto 0.2 % (0.2-1.2); Eosinophils Absolute Auto 0.1 K/mm3 (0-0.3); Eosinophils Percent Auto 0.8 % (0-4.4); Hematocrit 38.3 % (37.0-47.0); Hemoglobin 12.7 g/dL (12.0-15.0); Immature Granulocyte Absolute 0.04 K/mm3 (0.00-0.031); Immature Granulocyte Percent A 0.4 % (0-0.5); Lymphocytes Absolute Auto 2.11 K/mm3 (0.9-3.2); Lymphocytes Percent Auto 19.1 % (18.3-44.2); Mean Corpuscular HGB Conc 33.2 g/dl (32-36); Mean Corpuscular Hemoglobin 28.2 pg (26-34); Mean Corpuscular Volume 85.1 fl (80-100); Mean Platelet Volume 12.4 fl (7.4-10.4); Monocytes Absolute Auto 0.7 K/mm3 (0.1-0.6); Neutrophils Absolute Auto 8.1 K/mm3 (1.3-6.7); Neutrophils Percent Auto 73.5 % (45.5-73.1); Platelet Count Result 215 k/mm3 (150-375); Red Cell Distribution Width 12.9 % (11.5-14.5); White Blood Count 11.1 K/mm3 (4.5-10.0)
--- NOTE | 2023-11-19 11:29 | ED.ABDPAIN ---
HPI - Abdominal Pain General Chief Complaint: Abdominal Pain <CAMILO Jenkins Last Filed: 11/19/23 13:26> Stated Complaint: RLQ pain <CAMILO Jenkins Last Filed: 11/19/23 13:26> Time Seen by Provider: 11/19/23 10:55 <CAMILO Jenkins Last Filed: 11/19/23 13:26> Source: patient <CAMILO Jenkins Last Filed: 11/19/23 13:26> Mode of arrival: ambulatory <CAMILO Jenkins Last Filed: 11/19/23 13:26> Limitations: no limitations <CAMILO Jenkins Last Filed: 11/19/23 13:26> History of Present Illness HPI narrative: Patient is a 33-year-old female who presents the ED with report of right lower quadrant abdominal pain. Patient reports she woke up this morning with pain in her right lower abdomen. Pain has continued to worsen. Worse with movement. She has tried anything for the pain. Denies nausea, vomiting, diarrhea, constipation, fevers. Denies urinary complaints. No radiation or movement of the pain. <CAMILO Jenkins Last Filed: 11/19/23 13:26> Related Data Allergies/Adverse Reactions: Allergies Allergy/AdvReac Type Severity Reaction Status Date / Time adhesive Allergy Rash Verified 09/06/23 13:10 <CAMILO Jenkins Last Filed: 11/19/23 13:26> Review of Systems Review of Systems: CONSTITUTIONAL: Denies fever, chills, or sweats. GASTROINTESTINAL: See HPI. GENITOURINARY: Denies dysuria or hematuria. <CAMILO Jenkins Last Filed: 11/19/23 13:26> All systems reviewed & are unremarkable except as noted in HPI and below <CAMILO Jenkins Last Filed: 11/19/23 13:26> PMFSH Past Medical History Medical History: Medical History delivery delivered Pre-eclampsia first <CAMILO Jenkins Last Filed: 11/19/23 13:26> Surgical History Surgical History: Surgical History (Updated 11/19/23 @ 16:39 by Alexis Christensen MD) History of delivery x2 History of laparoscopic appendectomy (11/2023) <Sylvia Santoyo PA-C - Last Filed: 11/19/23 13:26> Family History Family History: Family History Grandparent Diabetes mellitus Heart disease Mother Rheumatoid arthritis <CAMILO Jenkins Last Filed: 11/19/23 13:26> Social History Social History: Social History Smoking packs per day: 0.5 Smoking cigarettes per day: 10.0 Years smoked: 5 Smoking pack-years: 2.50 Smoking status: Former smoker Tobacco type: cigarettes Second hand tobacco smoke exposure: No Smoking end date: 07/09/19 Alcohol intake: never Substance use: never Substance use type: does not use Do You Feel Safe in your Home?: Yes Lack of Transportation: No Lack of Food: Never True Current Housing: I Have Housing Concerned About Future Housing: No Difficulty Paying Gas/Electric Bills: No Difficulty Paying for Meds: No Currently Unemployed: No Education: Master's Degree or Higher Difficulty w/ Childcare or Family Care: No Living arrangements: with family Occupation/Education: occupation Gender identity (if verbalized by the patient): Female Sexual Orientation (if Verbalized by the Patient): Straight or Heterosexual Spiritual care concerns: No Agree to blood products: Yes <CAMILO Jenkins Last Filed: 11/19/23 13:26> Exam Narrative: GENERAL: Well appearing, obese with BMI of 39.2, non-toxic, in no acute distress. HEAD: Normocephalic, atraumatic. RESPIRATORY: Airway patent, respirations nonlabored. Clear to auscultation bilaterally, no rales, rhonchi, wheezing. CARDIOVASCULAR: Regular rate and rhythm without murmurs, rubs, or gallops. ABDOMINAL: Soft, mild tenderness
[2023-11-19 11:34] LABS: Add Urine Microscopic? YES; Appearance Urine Clear (Clear); Bacteria Urine None Seen /hpf; Bilirubin Urine Negative (Negative); Blood Urine 3+ (Negative); Color Urine Yellow (Yellow); Glucose Urine UA Negative (Negative); Ketones Urine Negative (Negative); Leukocyte Esterase Ur Trace LEU/UL (Negative); Nitrate Urine Negative (Negative); Non Pathogenic Casts 0-2; Protein Urine Negative (Negative); Specific Grav Ur 1.005 (1.001-1.035); Squamous Epithelial Cell Urine None Seen /hpf (Few); Urobilinogen Urine 0.2 mg/dL (<2.0); WBC Urine 0-5 /hpf (0-3); pH Urine 6.5 (5.0-9.0)
[2023-11-19 11:40] LABS: Alanine Aminotransferase 14 U/L (6-35); Albumin Level 4.7 g/dL (3.5-5.1); Alkaline Phosphatase 62 U/L (38-126); Anion Gap 10 mmol/L (4-12); Aspartate Amino Transferase 16 U/L (14-36); Bilirubin,Total 0.5 mg/dL (0.2-1.3); Blood Urea Nitrogen 15 mg/dL (7-17); Calcium 9.5 mg/dL (8.4-10.2); Carbon Dioxide 21 mmol/L (22-30); Chloride 109 mmol/L (98-107); Estimated CRCL calculation 142 ml/min; Estimated Glomerular Filt Rate > 60; Glucose 113 mg/dL (65-110); Lipase 121 U/L (23-300); Potassium 4.1 mmol/L (3.4-5.0); Sodium 140 mmol/L (137-145)
[2023-11-19] MEDS: SODIUM CHLORIDE 0.9% IV 1,000 ML 999 ML IV CONT (13:23)
[2023-11-19] MEDS: PIPERACILLN/TAZ 3.375GM/NS50ML 3.375 GM/50 ML BAG IVPB (13:23)
--- NOTE | 2023-11-19 13:24 | PC.NURSE ---
Sylvia JACKSON spoke pt concerning POC of surgery today. RN removed all pt clothes, gown, foot covers & hair covering done. Pt denies needing anything for pain. Rates pain 4-5
--- NOTE | 2023-11-19 14:01 | PM.HPGS ---
History of Present Illness History of Present Illness Consent: Risks, benefits, and alternatives have been discussed and questions answered. Patient agrees to proceed with procedure. Chief complaint: RLQ pain Narrative: Julianne Quiles is a 33 year old female who presented to the ER today with complaints of abdominal pain starting this morning. She reports waking up noticing some mild right-sided abdominal pain. She was gardening yesterday, and initially thought she was sore from her activity. She then got up and moved around, but realized the pain was primarily on the right side. She thought she was constipated, but had a bowel movement without relief in her pain. The pain was persistent and aggravated with movement. There was no improvement throughout the day and she decided to come into the ER for further evaluation. [place] [id number] scan showed evidence of acute appendicitis. No perforation or abscess on CT. Our service was consulted by the ED physician and she is currently seen in the preoperative area for evaluation. Review of Systems Review of Systems: All systems reviewed & are unremarkable except as noted in HPI and below PMFSH Past Medical History Medical History delivery delivered Pre-eclampsia first Surgical History Surgical History History of delivery x2 Family History Family History Grandparent Diabetes mellitus Heart disease Mother Rheumatoid arthritis Social History Social History Smoking packs per day: 0.5 Smoking cigarettes per day: 10.0 Years smoked: 5 Smoking pack-years: 2.50 Smoking status: Former smoker Tobacco type: cigarettes Second hand tobacco smoke exposure: No Smoking end date: 07/09/19 Alcohol intake: never Substance use: never Substance use type: does not use Do You Feel Safe in your Home?: Yes Lack of Transportation: No Lack of Food: Never True Current Housing: I Have Housing Concerned About Future Housing: No Difficulty Paying Gas/Electric Bills: No Difficulty Paying for Meds: No Currently Unemployed: No Education: Master's Degree or Higher Difficulty w/ Childcare or Family Care: No Living arrangements: with family Occupation/Education: occupation Gender identity (if verbalized by the patient): Female Sexual Orientation (if Verbalized by the Patient): Straight or Heterosexual Spiritual care concerns: No Agree to blood products: Yes Meds Home Medications and Allergies Home Medications Medication Instructions Recorded Confirmed Type fexofenadine 180 mg tablet 180 mg PO DAILY #90 tabs 03/22/23 09/06/23 Rx mometasone 50 mcg/actuation nasal 2 spray intranasal DAILY #51 grams 04/18/23 09/06/23 Rx spray (Nasonex 24hr Allergy) montelukast 10 mg tablet 10 mg PO DAILY #90 tabs 05/30/23 09/06/23 Rx sertraline 100 mg tablet 100 mg PO DAILY #90 tabs 08/23/23 09/06/23 Rx Allergies Allergy/AdvReac Type Severity Reaction Status Date / Time adhesive Allergy Rash Verified 09/06/23 13:10 Vital Signs Vital Signs - 24 hr 11/19/23 10:50 11/19/23 11:09 11/19/23 11:16 Temperature 97.5 F L 98.3 F Pulse Rate 89 65 66 Respiratory Rate 18 18 18 Blood Pressure 152/90 H 135/81 140/83 Pulse Oximetry 100 98 100 Oxygen Delivery Room Air 11/19/23 12:17 11/19/23 13:01 11/19/23 13:38 Temperature 98.3 F 98.3 F 98.2 F Pulse Rate 68 70 69 Respiratory Rate 18 18 18 Blood Pressure 119/80 127/79 112/78 Pulse Oximetry 99 100 100 Oxygen Delivery Exam Const: General: comfortable and no acute distress Nutritional Appearance: overweight Orientation/consciousness: patient oriented x3 HENMT: Head: normocephalic and atraumatic E
--- NOTE | 2023-11-19 14:19 | WPDANESEPPF ---
Anes - Initial Pre Proc Eval Procedure: Operation Date: 11/19/23 15:00 Proposed Procedures p Laparoscopic Appendectomy - Martin Madden DO Date/Time: 11/19/23 14:19 Surgeon: Martin Madden DO Pre Op Diagnosis: RLQ pain Patient Data Age: 33 Gender: F Height: 1.78 m Weight: 124 kg Last Vital Signs Temp 98 F 11/19/23 13:53 Pulse 61 11/19/23 13:53 Resp 14 11/19/23 13:53 BP 131/85 11/19/23 13:53 Pulse Ox 100 11/19/23 13:53 O2 Del Method Room Air 11/19/23 13:53 Allergies Allergy/AdvReac Type Severity Reaction Status Date / Time adhesive Allergy Rash Verified 09/06/23 13:10 Home Medications Medication Instructions Recorded Confirmed Type fexofenadine 180 mg tablet 180 mg PO DAILY #90 tabs 03/22/23 09/06/23 Rx mometasone 50 mcg/actuation nasal 2 spray intranasal DAILY #51 grams 04/18/23 09/06/23 Rx spray (Nasonex 24hr Allergy) montelukast 10 mg tablet 10 mg PO DAILY #90 tabs 05/30/23 09/06/23 Rx sertraline 100 mg tablet 100 mg PO DAILY #90 tabs 08/23/23 09/06/23 Rx Laboratory Tests 11/19/23 11:15 WBC 11.1 H K/mm3 (4.5-10.0) RBC 4.50 M/mm3 (4.2-5.4) Hgb 12.7 D g/dL (12.0-15.0) Hct 38.3 % (37.0-47.0) MCV 85.1 fl (80-100) MCH 28.2 pg (26-34) MCHC 33.2 g/dl (32-36) RDW 12.9 % (11.5-14.5) Plt Count 215 k/mm3 (150-375) MPV 12.4 H fl (7.4-10.4) Immature Gran % (Auto) 0.4 % (0-0.5) Neut % (Auto) 73.5 H % (45.5-73.1) Lymph % (Auto) 19.1 % (18.3-44.2) [place] % (Auto) 6.0 % (2.6-8.5) Eos % (Auto) 0.8 % (0-4.4) Baso % (Auto) 0.2 % (0.2-1.2) Lymph # (Auto) 2.11 K/mm3 (0.9-3.2) [place] # (Auto) 0.7 H K/mm3 (0.1-0.6) Eos # (Auto) 0.1 K/mm3 (0-0.3) Baso # (Auto) 0.0 K/mm3 (0.0-0.1) Abs Immat Gran (auto) 0.04 H K/mm3 (0.00-0.031) Absolute Neuts (auto) 8.1 H K/mm3 (1.3-6.7) Absolute Nucleated RBC 0.000 K/mm3 (0.0-0.012) Nucleated RBC % 0.0 % (0.0-0.2) Sodium 140 mmol/L (137-145) Potassium 4.1 mmol/L (3.4-5.0) Chloride 109 H mmol/L (98-107) Carbon Dioxide 21 L mmol/L (22-30) Anion Gap 10 mmol/L (4-12) BUN 15 D mg/dL (7-17) Creatinine 0.70 mg/dL (0.7-1.0) Estim Creat Clear Calc 142 ml/min Estimated GFR > 60 (59 - ) Glucose 113 H mg/dL (65-110) Calcium 9.5 mg/dL (8.4-10.2) Total Bilirubin 0.5 mg/dL (0.2-1.3) AST 16 U/L (14-36) ALT 14 U/L (6-35) Alkaline Phosphatase 62 U/L (38-126) Total Protein 8.0 g/dL (6.3-8.2) Albumin 4.7 g/dL (3.5-5.1) Lipase 121 U/L (23-300) Urine Color Yellow (Yellow) Urine Appearance Clear (Clear) Urine pH 6.5 (5.0-9.0) Ur Specific [place] 1.005 (1.001-1.035) Urine Protein Negative mg/dL (Negative) Urine Glucose (UA) Negative mg/dL (Negative) Urine Ketones Negative mg/dL (Negative) Ur Blood (Man) 3+ H (Negative) Urine Nitrate Negative (Negative) Urine Bilirubin Negative (Negative) Urine Urobilinogen 0.2 mg/dL (<2.0) Leukocyte Esterase Rfl Trace H RENAY/UL (Negative) Urine RBC 3-5 H /hpf (0-2) Urine WBC 0-5 /hpf (0-3) Ur Squamous Epith Cells None seen /hpf (Few) Urine Bacteria None seen /hpf Urine Casts 0-2 Patient hx anesthesia problems: none Family hx anesthesia problems: none Results Review: All pre-operative results and documents have been reviewed as part of the pre-operative evaluation. [facility] Past Medical History Medical History delivery delivered Pre-eclampsia first Surgical History Surgical History History of delivery x2 Family History Family History Grandparent Martin
--- NOTE | 2023-11-19 15:41 | WPDHPUPDATE1 ---
History and Physical Update Update Date/Time: 11/19/23 15:41 History and Physical has been reviewed, including an updated exam of the patient. There are NO changes in the patient's condition. Risks, benefits, and alternatives have been discussed and questions answered. Patient agrees to proceed with procedure.
[2023-11-19] MEDS: BUPIVACAINE/EPINEPHRINE 0.5% 50 ML VIAL 20 ML INFILTRATE (16:16)
--- NOTE | 2023-11-19 16:24 | W.PM.PROC2 ---
Procedure Note - Detailed Date of Procedure 11/19/23 Pre-op Diagnosis Acute appendicitis Post-op Diagnosis Same Procedure Performed Laparoscopic appendectomy Surgeon Martin Madden, DO Anesthesia General and Local (0.5% bupivicaine with epinephrine) Indications RLQ pain, CT findings consistent with appendicitis Findings Acute uncomplicated appendicitis Description of Procedure Procedure as well as risks, benefits, and alternatives were explained to the patient. The patient agreed to proceed. Written consent was obtained and placed in chart prior to procedure. The patient was brought back to surgical suite. She was placed supine on operating table. Time-out was done to confirm the patient and procedure. The patient was then intubated by the Anesthesia Department. Her abdomen was prepped and draped in sterile fashion using chlorhexidine prep. A 5 mm incision was made just to the left of the patient's umbilicus and a 5 mm Optiview trocar was advanced through the abdominal layers under direct visualization. Once inside the peritoneal cavity, carbon dioxide insufflation was used to create a pneumoperitoneum. The camera was inserted and the abdomen was inspected. No immediate abnormalities were identified. The patient was then placed in slight Trendelenburg position and rotated to the left. A 5 mm incision was made in the suprapubic region in midline and a 5 mm trocar was inserted under direct visualization. A 12 mm incision was made in the left lower quadrant and a 12 mm trocar was inserted under direct visualization. The right lower quadrant was carefully inspected. The cecum was identified and then this was traced back to the appendix. The appendix was identified and grasped at the mesoappendix and lifted anteriorly. Careful blunt dissection was carried out at the base of the appendix through the mesoappendix using a [place] grasper. An Endo-SEEMA 45 mm blue load stapler was then advanced across the base of the appendix and clamped and fired. A white reload was then clamped across the mesoappendix and fired. This freed up our appendix completely. It was then placed in an EndoCatch bag and removed through the left lower quadrant port. The staple lines were then inspected. Hemostasis appeared adequate and the staple lines appeared secure. The area was then irrigated with sterile saline. The pelvis was then carefully inspected and irrigated with sterile saline as well and the remainder of the abdomen was carefully inspected. The patient was then flattened out in bed. One final inspection was made around the abdominal cavity and no other abnormalities were seen. The left lower quadrant port was removed and a Leif-Nathaniel cone was used to approximate the fascia with an 0 Vicryl simple interrupted suture. The remaining ports were then removed under direct visualization. The camera was removed and the pneumoperitoneum was released. 0.5% bupivacaine with epinephrine was infiltrated locally around each of the incisions. The skin of the incisions was then approximated using 4-0 Monocryl subcuticular suture and Exofin glue was applied on top. The patient was then awakened from anesthesia, extubated, and transferred to Recovery. Estimated Blood Loss 10 Urine Output 300 Pathology Yes (Appendix) Complications No immediate complications Condition Stable Disposition Same day [facility] Billing Surgery - Charge Forward: Surgery Billing
[2023-11-19] MEDS: LACTATED RINGERS 1,000 ML 30 ML IV CONT (16:32)
[2023-11-19] MEDS: fentaNYL CITRATE INJ (*CRX) 100 MCG/2 ML VIAL 25 MCG IV PUSH ×4 (16:40→16:54)
[2023-11-19] MEDS: KETOROLAC 30 MG/ML VIAL (*BKC) IV PUSH (17:05)
[2023-11-19] MEDS: oxyCODONE HCL (*CRX) 5 MG TAB IR PO (17:30)
== END 2023-11-19 18:12 | disposition home or self-care (01) ==
LOC: ANHED 13:26 → ANHSURGERY 13:35
PROVIDERS: Emergency Provider Physician Assistant; PCP Family Medicine Adolescent Medicine; Visit Provider Surgery
PROC: 0DTJ4ZZ Resection of Appendix, Percutaneous Endoscopic Approach (ICD-10-PCS; CPT 44970; principal; 2023-11-19 15:00)
DX: K35.33 Acute appendicitis with perforation, localized peritonitis, and gangrene, with abscess (principal); E66.9 Obesity, unspecified; Z68.39 Body mass index [BMI] 39.0-39.9, adult; Z98.890 Other specified postprocedural states; Z87.891 Personal history of nicotine dependence; Z82.49 Family history of ischemic heart disease and other diseases of the circulatory system
CPT/HCPCS: 44970; 36415; 74177; 80053; 81001; 81025; 83690; 85025; 88304; 99285; A9270; J1100; J1885; J2250; J2405; J2543; J2704; J3010; J7030; J7120; Q9967

== ENCOUNTER 2025-03-09 20:30 | Emergency (ER) | payer OTHER, SELFPAY ==
[2025-03-09 20:44] VITALS: BP 146/80; PULSE 91; RESP 18; O2SAT 99
--- NOTE | 2025-03-09 21:07 | ED.WOUNDLAC ---
HPI - Wound/Laceration General Chief Complaint: Wound/Laceration Stated Complaint: laceration Time Seen by Provider: 03/09/25 20:49 History of Present Illness HPI narrative: 34-year-old female presents emergency department for laceration to her left hand that occurred 30 minutes prior to arrival. Patient states she was using a knife to attempt to cut open a summer sausage. She accidentally cut herself. States her Tdap was updated 2 days ago. Related Data Allergies Allergy/AdvReac Type Severity Reaction Status Date / Time adhesive Allergy Rash Verified 07/21/24 14:21 Review of Systems Review of Systems: All systems reviewed & are unremarkable except as noted in HPI and below PMFSH Past Medical History Medical History delivery delivered Pre-eclampsia first Surgical History Surgical History History of laparoscopic appendectomy (11/2023) History of delivery x2 Family History Family History Grandparent Diabetes mellitus Heart disease Mother Rheumatoid arthritis Social History Social History Smoking packs per day: 0.5 Smoking cigarettes per day: 10.0 Years smoked: 5 Smoking pack-years: 2.50 Smoking status: Former smoker Tobacco type: cigarettes Second hand tobacco smoke exposure: No Smoking end date: 07/09/19 Alcohol intake: never Substance use: never Substance use type: does not use Do You Feel Safe in your Home?: Yes Lack of Transportation: No Lack of Food: Never True Current Housing: I Have Housing Concerned About Future Housing: No Difficulty Paying Gas/Electric Bills: No Difficulty Paying for Meds: No Currently Unemployed: No Education: Master's Degree or Higher Difficulty w/ Childcare or Family Care: No Living arrangements: with family Occupation/Education: occupation Gender identity (if verbalized by the patient): Female Sexual Orientation (if Verbalized by the Patient): Straight or Heterosexual Spiritual care concerns: No Agree to blood products: Yes Exam Narrative: GENERAL: Well-appearing, well-nourished, and in no acute distress. HEAD: Normocephalic, atraumatic. EYES: EOMI. ENT: Nares clear, no rhinorrhea or epistaxis. Mucous membranes moist. NECK: Supple. CHEST: Clear to auscultation. No respiratory distress. HEART: Regular rate and rhythm. No murmur heard. Normal peripheral pulses. EXTREMITIES: Normal range of motion. No edema. SKIN: 1 cm superficial linear laceration to the dorsum of the left hand near the 1st metatarsal. No deep structures or foreign bodies visualized. No active bleeding. Patient has full range of motion of all digits without difficulty. Cap refill less than 2. Sensation intact. Radial pulse 2 +. NEURO: No focal deficits. Alert and oriented x3 Course Vital Signs Vital signs: Vital Signs Pulse Rate 91 03/09/25 20:44 Respiratory Rate 18 03/09/25 20:44 Blood Pressure 146/80 H 03/09/25 20:44 Pulse Oximetry 99 03/09/25 20:44 Oxygen Delivery Room Air 03/09/25 20:44 Pulse Rate 91 03/09/25 20:44 Respiratory Rate 18 03/09/25 20:44 Blood Pressure 146/80 H 03/09/25 20:44 Pulse Oximetry 99 03/09/25 20:44 Oxygen Delivery Room Air 03/09/25 20:44 Procedures Laceration Laceration 1: Date: 03/09/25 Time: 21:51 Site: upper extremity Side (If applicable): left Size (cm): 1 Description: linear Depth: simple, single layer Local Anesthetic: lidocaine 1% and with epi Amount of anesthesia used (mL): 2 Pre-repair: wound explored, irrigated and irrigated extensively ====== Skin Level ====== Skin layer closed with: nylon Size (cm): 5-0 Number of sutures: 2 Technique: simple, interrupted ====== Subcutaneous Layer ====== ====== Muscle Layer ====== ====== Tendon Layer ====== MDM - Wound/Laceration MDM Narrative Medical decision making narrative: 34-year-old female presents emergency department for laceration to the dorsum of her left hand that occurred 30 minutes prior to arrival. Vital stable. Exam is significant for a linear superficial 1 cm laceration to the dorsum of the left hand. No deep structures or foreign bodies visualized. Patient has full range of motion of all digits without difficulty. Bleeding is controlled. Tdap is up-to-date. Laceration irrigated extensively with normal saline and closed with 2 sutures without complications. Patient was given wound care advised of sutures removed in 7 days. Discussed return precautions. She is agreeable with the plan verbalized understanding. Discharged in stable condition. Discharge Plan Discharge Clinical Impression: Laceration Patient Disposition: Home Condition: Stable Instructions: Antibiotic Form, Care For Your Stitches (ED), Laceration (ED) Additional Instructions: Please have her stitches removed in 7 days. Keep the wound clean and dry. Return to the emergency department sooner if you develop surrounding redness, drainage, fever or other concerning symptoms. Patient Language: Estonian Prescriptions: No Action albuterol sulfate 90 mcg/actuation HFA aerosol inhaler 1 inh inhalation Q4H PRN (Reason: shortness of breath or wheezing) Qty: 6.7 1RF mometasone [Nasonex 24hr Allergy] 50 mcg/actuation spray,non-aerosol 2 spray intranasal DAILY Qty: 51 1RF Rx Instructions: administer into each nostril fexofenadine 180 mg tablet 180 mg PO DAILY Qty: 90 1RF hydroxyzine HCl 25 mg tablet 25 mg PO TID PRN (Reason: anxiety) Qty: 30 0RF Wegovy 2.4 mg/0.75 mL pen injector 2.4 mg subcut WEEKLY Qty: 9 0RF sertraline 100 mg tablet 150 mg PO DAILY Qty: 135 1RF Follow-up/Referrals: Alexis Christensen MD [Primary Care Provider, Family Practice]
== END 2025-03-09 22:06 | disposition home or self-care (01) ==
PROVIDERS: Emergency Provider Physician Assistant; PCP Family Medicine Adolescent Medicine
DX: S61.412A Laceration without foreign body of left hand, initial encounter (principal); W26.0XXA Contact with knife, initial encounter
CPT/HCPCS: 12001; 99282

== ENCOUNTER 2025-04-15 01:51 | Day surgery (SDC) | payer OTHER, SELFPAY ==
[2025-04-03 09:18] VITALS: BMI 36.2
--- NOTE | 2025-04-03 09:27 | PC.NURSE ---
[facility] has started construction of its new state of the art ER which will open Spring 2026. With this, we anticipate parking may be a challenge for some our surgical patients and families. Parking spaces are limited but are available for all Surgical, obstetrics, and ER patients sharing this lot. If you arrive and find you are having a hard time finding a parking space, please note that we understand the challenges, please drive around the hospital and park near Hospital Entrance 1. When you enter this entrance, you can ask a volunteer to direct or take you back to the surgical waiting area to check in. We appreciate everyone?s understanding of these expected challenges while we build for your future. Report to the Outpatient Waiting Room, entrance under the green pavilion located off [address], at time _1130_ on date _[id number]_. Planned Procedure Time: _130pm_.? Time changes happen often and if your time is changed the preop area will call you the afternoon before. - You and your visitor will be asked to self-screen and do not enter if you have any COVID symptoms. Please call surgeon if you need to reschedule. - A mask is optional within the hospital at this time. Patients may have clear liquids (water, carbonated beverages, clear teas, apple juice) until 3 hours prior to surgery with a maximum of 20 ounces. - No food from midnight until time of surgery and no smoking, or chewing tobacco (or any form of nicotine). No chewing gum, candy or mints. Take only the following medications with a SIP of water on the morning of surgery: ___If needed may use Hydroyzine, Albuterol and or Nasonex. ___ DO NOT STOP ANY OF YOUR OTHER PRESCRIPTION MEDICATIONS PRIOR TO SURGERY EXCEPT THE FOLLOWING Hold all vitamins and supplements for 3 days per anesthesiologist. Medications to discontinue per physician ___Wegovy Date to take last icpu__[id number] Please no make-up, nail prydeinig, hairspray, perfume, deodorant, or body powder the day of surgery.? No jewelry (including any body piercings) or valuables the day of surgery, leave them at home.? Please take a shower or bath the night before, or the morning of, surgery with an antibacterial soap.? Wear comfortable, loose fitting clothing.? - Jewelry must be removed prior to entering the operating room.? Rings and piercings that are not removed may be cut off. - The hospital will not accept responsibility for valuables.? - Please leave all valuables, including medications, at home the day of surgery. If you are going home after surgery, a licensed new autos delivery driver must drive you home.? - NO public transportation without another adult if you receive anesthesia. - We recommend that an adult stay with you for 24 hours following discharge. - We also recommend that you do not drive, make important decision, drink alcoholic beverages, or take any drugs that were not prescribed by your health care provider for at least 24 hours after your discharge time. Follow any additional instructions given to you from your surgeon. Telephone instructions given to __Julianne___and asked if any additional questions and then verbalized understanding. Patient advised to call surgeon office or pre surgery nurse liaison [phone] if any additional questions.
[2025-04-15] VITALS (7 sets, daily range): BP systolic 110–143; BP diastolic 60–83; PULSE 72–108; RESP 12–20; TEMP 36.1–37; O2SAT 98–100
--- NOTE | 2025-04-15 09:59 | S_PTH ---
PATIENT: Julianne Quiles LOC: [facility] U#:[id number] AGE/SX: 34/F ROOM: RE04/15/[address]: Otto Elder MD : 1990 BED: DIS: 04/15/2025 SPEC #: [id number] RECD: 04/16/25 11:49 STATUS: RADHA REQ #: [id number] IKE: 04/15/25 09:[address]: Otto Elder DEPT: [facility] Surgical RECD BY: Abbi Tavera ENTERED: 04/16/25 11:49 SP TYPE: Surgical OTHR DR: Laura Haas APRN Tissues: A - Fallopian Tube Bilateral Procedures: Gross and Microscopic Level 2 Hematoxylin and Eosin Stain
--- NOTE | 2025-04-15 11:32 | PM.IMHP ---
H&P: HPI History of Present Illness Date/Time: 04/15/25 11:32 Chief Complaint: Heavy bleeding Narrative: This patient is a 34-year-old female with heavy vaginal bleeding. She has a malpositioned intrauterine device. We have agreed to perform hysteroscopic removal of IUD/foreign body. We have agreed to perform endometrial ablation with hysteroscopy. She will also undergo laparoscopic bilateral salpingectomy. She understands the risks, benefits, and alternatives. She has completed the informed consent process and is ready to proceed. The patient understands the details of the procedure. The procedure has been explained in detail. She understands the risks. She understands that injuries may occur that result in hospitalization, more surgery, and severe illness. She understands risk of hemorrhage and infection. She denies any chest pain or shortness of breath. She denies any nausea, vomiting, fever, chills. Review of Systems Review of Systems: All systems reviewed & are unremarkable except as noted in HPI and below Constitutional: Constitutional: Denies chills, Denies fatigue, Denies fever(s) and Denies weakness Eyes: Eyes: Denies blurry vision, Denies change in vision, Denies loss of peripheral vision, Denies loss of vision, Denies other visual disturbances and Denies eye pain ENT: Denies vertigo, Denies dizziness, Denies hearing loss, Denies mouth pain, Denies nasal obstruction, Denies neck mass and Denies neck pain Cardiovascular: Cardiovascular: Denies chest pain, Denies diaphoresis, Denies syncope, Denies leg edema and Denies dyspnea Respiratory: Respiratory: Denies chest congestion, Denies cough, Denies hemoptysis, Denies dyspnea and Denies wheezing Gastrointestinal: Gastrointestinal: Denies abdominal pain, Denies constipation, Denies diarrhea, Denies nausea and Denies vomiting Genitourinary: Genitourinary: Denies hematuria, Denies change in libido, Denies nocturia, Denies genital lesions, Denies flank pain and Denies urinary urgency Musculoskeletal: Musculoskeletal: Denies abnormal gait, Denies back pain, Denies myalgias, Denies arthralgias, Denies joint swelling, Denies muscle weakness and Denies neck pain Integumentary/Breasts: Skin/Breast: Denies swelling, Denies breast pain, Denies breast mass, Denies dry skin, Denies nipple discharge, Denies unusual bruising and Denies jaundice Neurologic: Denies Neuro-related abnormal movements, Denies Abnormal speech present, Denies abnormal gait, Denies behavioral changes, Denies confusion, Denies vertigo, Denies dizziness, Denies syncope, Denies loss of vision, Denies memory loss, Denies convulsions and Denies weakness Psychiatric: Psychiatric: Denies abnormal sleep pattern, Denies behavioral changes, Denies change in libido, Denies confusion, Denies depression, Denies anhedonia and Denies memory loss Endocrine: Endocrine: Reports no additional endocrine complaints, Denies change in libido and Denies fatigue Hematologic/Lymphatic: Hematologic/Lymphatic: Reports no additional hematologic/lymphatic complaints Allergic/Immunologic: Allergic/Immunologic: Reports no additional allergic/immunologic complaints and Denies wheezing PMFSH Past Medical History Medical History delivery delivered Pre-eclampsia first Surgical History Surgical History History of laparoscopic appendectomy (11/2023) History of delivery x2 Family History Family History (Updated 03/16/25 @ 08:45 by LENIN Salinas) Grandparent Diabetes mellitus Heart disease Mother Rheumatoid arthritis Social History Social History (Updated 03/16/25 @ 14:03 by Amrita Wheeler, Student) Smoking packs per day: 1 Smoking cigarettes per day: 20.0 Years smoked: 5 Smoking pack-years: 5.00 Smoking status: Former smoker Tobacco type: cigarettes Second hand tobacco smoke exposure: No Smoking end date: 04/03/20 Alcohol intake: never Substance use: never Substance use type: does not use Do You Feel Safe in your Home?: Yes Lack of Transportation: No Lack of Food: Never True Current Housing: I Have Housing Concerned About Future Housing: No Difficulty Paying Gas/Electric Bills: No Difficulty Paying for Meds: No Currently Unemployed: No Education: Master's Degree or Higher Difficulty w/ Childcare or Family Care: No Living arrangements: with family Occupation/Education: occupation Additional occupation/education comments: cartographer Gender identity (if verbalized by the patient): Female Sexual Orientation (if Verbalized by the Patient): Straight or Heterosexual Spiritual care concerns: No Agree to blood products: Yes Meds Home Medications and Allergies Home Medications ?Medication ?Instructions ?Recorded ?Confirmed ?Type mometasone 50 mcg/actuation nasal 2 spray intranasal DAILY #51 grams 04/18/23 04/03/25 Rx spray (Nasonex 24hr Allergy) albuterol sulfate 90 mcg/actuation 1 inh inhalation Q4H PRN shortness 05/09/24 04/03/25 Rx aerosol inhaler of breath or wheezing #6.7 grams fexofenadine 180 mg tablet 180 mg PO DAILY #90 tabs 06/08/24 04/03/25 Rx hydroxyzine HCl 25 mg tablet 25 mg PO TID PRN anxiety #30 tabs 09/12/24 04/03/25 Rx semaglutide (weight loss) 2.4 2.4 mg (0.75 mL) subcut WEEKLY #9 12/26/24 04/03/25 Rx mg/0.75 mL subcutaneous pen mL injector (Wegovy) sertraline 100 mg tablet 150 mg (1.5 x 100 mg) PO DAILY 02/23/25 04/03/25 Rx #135 tabs Allergies Allergy/AdvReac Type Severity Reaction Status Date / Time adhesive Allergy Rash Verified 04/03/25 09:17 Exam Const: General: cooperative, healthy appearing, comfortable and no acute distress Orientation/consciousness: oriented to person, oriented to place and oriented to time HENMT: Head: normal to inspection Ears: external ears normal Face/Nose/Sinus: Normal external nose present and normal facial exam Face and sinus: normal facial exam Eyes: General: appearance normal, both eyes and all related structures Neck: Neck: normal visual inspection, trachea midline and supple Resp: Auscultation: clear to auscultation bilaterally, no crackles, no rales, no rhonchi and no wheezes Cardio: Rate: regular rate Rhythm: regular rhythm Heart sounds: no click, no murmurs and no rubs GI: GI Palp: No abdominal tenderness, No Soft to palpation, No Tenderness to palpation present (GI) and No Palpable mass present Auscultation: normal bowel sounds Skin: General skin exam: normal color and no rashes or lesions noted Neuro: General: oriented to person, oriented to place and oriented to time Extrem: General: normal to inspection, no joint enlargement, no clubbing, cyanosis or edema, no pedal edema and no calf tenderness Psych: Appearance: grossly normal Mental Status: mental status grossly normal Speech and movement: Normal speech and movement present Assessment and Plan Assessment and plan (1) Unwanted fertility: Code(s): Z30.09 - Encounter for other general counseling and advice on contraception Status: Acute (2) Menorrhagia: Code(s): N92.0 - Excessive and frequent menstruation with regular cycle Status: Acute Plan This patient is a 34-year-old female with heavy vaginal bleeding. She has a malpositioned intrauterine device. We have agreed to perform hysteroscopic removal of IUD/foreign body. We have agreed to perform endometrial ablation with hysteroscopy. She will also undergo laparoscopic bilateral salpingectomy. She understands the risks, benefits, and alternatives. She has completed the informed consent process and is ready to proceed.
--- NOTE | 2025-04-15 11:34 | WPDHPUPDATE1 ---
History and Physical Update Update Date/Time: 04/15/25 11:34 History and Physical has been reviewed, including an updated exam of the patient. There are NO changes in the patient's condition. Risks, benefits, and alternatives have been discussed and questions answered. Patient agrees to proceed with procedure.
--- NOTE | 2025-04-15 11:36 | P.PNAN_ITS ---
Anes - Initial Pre Proc Eval Procedure: Operation Date: 04/15/25 13:30 Proposed Procedures p Hysteroscopy with Removal Foreign Body, Zulma Endometrial Ablation - Otto Elder MD s Bilateral Laparoscopic Salpingectomy - Otto Elder MD Date/Time: 04/15/25 11:36 Surgeon: Otto Elder MD Pre Op Diagnosis: Displacement of Intrauterine Conceptive device, Patient Data Age: 34 Gender: F Height: 1.75 m Weight: 111.4 kg Allergies Allergy/AdvReac Type Severity Reaction Status Date / Time adhesive Allergy Rash Verified 04/03/25 09:17 Home Medications ?Medication ?Instructions ?Recorded ?Confirmed ?Type mometasone 50 mcg/actuation nasal 2 spray intranasal D AILY #51 grams 04/18/23 04/03/25 Rx spray (Nasonex 24hr Allergy) albuterol sulfate 90 mcg/actuation 1 inh inhalation Q4 H PRN shortness 05/09/24 04/03/25 Rx aerosol inhaler of breath or wheezing #6.7 g jevon fexofenadine 180 mg tablet 180 mg PO DAILY #90 tabs 04/03/25 Rx hydroxyzine HCl 25 mg tablet 25 mg PO TID PRN anxiety #30 tabs 09/12/24 04/03/25 Rx semaglutide (weight loss) 2.4 2.4 mg (0.75 mL) subcut WEEKLY #9 12/26/24 04/03/25 Rx mg/0.75 mL subcutaneous pen mL injector (Wegovy) sertraline 100 mg tablet 150 mg (1.5 x 100 mg) PO KENISHA LY 02/23/25 04/03/25 Rx #135 tabs Patient hx anesthesia problems: none Family hx anesthesia problems: none Results Review: All pre-operative results and documents have been reviewed as part of the pre- operative evaluation. [facility] Past Medical History Medical History delivery delivered Pre-eclampsia first Surgical History Surgical History History of laparoscopic appendectomy (11/2023) History of delivery x2 Family History Family History Grandparent Diabetes mellitus Heart disease Mother Rheumatoid arthritis Social History Social History Smoking packs per day: 1 Smoking cigarettes per day: 20.0 Years smoked: 5 Smoking pack-years: 5.00 Smoking status: Former smoker Tobacco type: cigarettes Second hand tobacco smoke exposure: No Smoking end date: 04/03/20 Alcohol intake: never Substance use: never Substance use type: does not use Do You Feel Safe in your Home?: Yes Lack of Transportation: No Lack of Food: Never True Current Housing: I Have Housing Concerned About Future Housing: No Difficulty Paying Gas/Electric Bills: No Difficulty Paying for Meds: No Currently Unemployed: No Education: Master's Degree or Higher Difficulty w/ Childcare or Family Care: No Living arrangements: with family Occupation/Education: occupation Additional occupation/education comments: cartographer Gender identity (if verbalized by the patient): Female Sexual Orientation (if Verbalized by the Patient): Straight or Heterosexual Spiritual care concerns: No Agree to blood products: Yes Anes - Eval Final PreProcedure Day of Procedure 04/15/25 11:36 Patient weight: obese Heart: regular rate and rhythm Lungs: clear to auscultation Airway: Mallampati scale class II Neurological: alert and oriented Last oral intake: >/= 8 hours ASA classification: II Emergent: no Anesthetic plan: proceed Anesthesia type and monitoring: general ETT and standard monitoring Results Review: All pre-operative results and documents have been reviewed as part of the pre-operative evaluation. Informed Consent: The patient's anesthetic plan and its attendant risks and benefits were discussed with the patient/family/POA. Questions were solicited and answers provided to the satisfaction of the patient/family/POA.
[2025-04-15] MEDS: LACTATED RINGERS 1,000 ML 30 ML IV CONT ×2 (11:40→13:00)
[2025-04-15] MEDS: SCOPOLAMINE 1 MG PATCH 1 PATCH TRANSDERM (11:45)
[2025-04-15] MEDS: KETOROLAC 15 MG/ML VIAL (*BKC) IV PUSH (11:45)
[2025-04-15] MEDS: ACETAMINOPHEN 500 MG TABLET 1000 MG PO (11:45)
[2025-04-15 12:04] LABS: BEDSIDEPREGUCG Negative (Negative)
--- NOTE | 2025-04-15 12:47 | SUR.OPER ---
Fluid deficit = 270 ml
--- NOTE | 2025-04-15 13:01 | P.OP_ITS ---
Procedure Note - Detailed Date of Procedure 04/15/25 Pre-op Diagnosis Menorrhagia, unwanted fertility, malpositioned IUD. Post-op Diagnosis Same Procedure Performed Laparoscopic bilateral salpingectomy with endometrial ablation and hysteroscopy. IUD removal. Surgeon Otto Elder MD Anesthesia General Indications Menorrhagia, female sterilization Findings IUD partially within the uterine cervix. Malposition of the arms. Normal- appearing pelvic. Description of Procedure Patient was taken the operating room. She has prepped draped in the dorsal lithotomy position after induction of general anesthesia. A 5 mm abdominal incision was made in left upper quadrant of the abdomen with scalpel. A 5 mm trocars inserted the intra-abdominal cavity under direct visualization of the scope. Pneumoperitoneum was achieved. A 5 mm periumbilical incision was made using a scalpel on the abdominal scan. A 5 mm trocar was inserted the intra- abdominal cavity under visualization of the scope. A 5 mm incision made left lower quadrant of the abdomen. A 5 mm trocar was inserted the intra-abdominal cavity and direct visualization of the scope. The bilateral fallopian tubes were removed. The paratubal tissue in the area of the uterus was grasped with the LigaSure cautery and transected after being cauterized. The paratubal tissue from the ovary to the uterine cornu was cauterized and transected with LigaSure cautery. This was all done in a bilateral fashion. The tube was transected at the area of the uterine cornua and the tubes was removed through the 5 mm trocar site. The pneumoperitoneum was reduced. The trocars were removed. The skin was closed with subcuticular 4 Monocryl and covered with Dermabond. Our attention was then turned to the endometrial ablation portion of the procedure. A speculum was placed in the vagina. The cervix was grasped with a tenaculum. The IUD was removed with a packing forceps. The cervix was dilated to approximately 8 mm with Eubanks dilators. The hysteroscope was inserted. And the below findings were noted. All of the intrauterine surfaces were curettaged with a medium-size curette and the specimens were collected. Measurements of the cervix were taken using the uterine sound and the hysteroscope. The intrauterine cavity measurements were entered into the handpiece. The device was inserted into the intrauterine cavity and the array was expanded. The balloon cuff was inflated. When an adequate seal was formed the safety and energy cycles were initiated and completed. The array was collapsed, the balloon was deflated. The insert was withdrawn. The hysteroscope was reinserted and a well desiccated intrauterine cavity was observed. The patient was taken recovery room stable condition. Sponge lap and needle counts were correct x2. She tolerated the procedure well. Pathology Yes Complications No immediate complications Condition Stable Disposition PACU
--- NOTE | 2025-04-15 13:03 | SUR.OPER ---
Surgeon made aware of patient's fluid deficit
[2025-04-15] MEDS: oxyCODONE HCL (*CRX) 5 MG TAB IR PO (13:54)
--- NOTE | 2025-04-16 10:01 | SUR.OPER ---
Late specimen entry.
== END 2025-04-15 14:45 | disposition home or self-care (01) ==
PROVIDERS: PCP Nurse Practitioner Family; Visit Provider Obstetrics & Gynecology
PROC: 0U5B8ZZ Destruction of Endometrium, Via Natural or Artificial Opening Endoscopic (ICD-10-PCS; CPT 58563; principal; 2025-04-15 13:30)
PROC: (CPT 49320; 2025-04-15 13:30)
DX: T81.89XA Other complications of procedures, not elsewhere classified, initial encounter (principal); Y83.8 Other surgical procedures as the cause of abnormal reaction of the patient, or of later complication, without mention of misadventure at the time of the procedure; G89.18 Other acute postprocedural pain; E66.9 Obesity, unspecified; Z68.36 Body mass index [BMI] 36.0-36.9, adult; Z79.51 Long term (current) use of inhaled steroids; Z79.85 Long-term (current) use of injectable non-insulin antidiabetic drugs; Z98.890 Other specified postprocedural states; Z87.891 Personal history of nicotine dependence; Z82.49 Family history of ischemic heart disease and other diseases of the circulatory system
CPT/HCPCS: 58661; 58563; 58579; 88302; A9270; J1100; J1200; J1885; J2003; J2250; J2405; J2704; J3010; J7120